=== PATIENT | male | born 1980 | race Caucasian/White ===

== ENCOUNTER 2025-04-07 20:20 | Emergency (ER) | payer BC, SELFPAY ==
[2025-04-07 20:54] VITALS: BP 158/107; PULSE 83; RESP 20; TEMP 36.7; O2SAT 98; BMI 29.3
--- NOTE | 2025-04-07 20:55 | ED.GENADULT ---
HPI - General Adult General Chief complaint: Nausea/Vomiting/Diarrhea Stated complaint: UC sent over for IV for heatstroke Time Seen by Provider: 04/08/25 00:38 Source: patient Mode of arrival: ambulatory Limitations: no limitations History of Present Illness ED Provider: Dr. Jordyn Saeed HPI narrative: Patient comes to the emergency room complaining of nausea vomiting diarrhea and feeling unwell for Couple of days. Patient states that earlier today he went to urgent Care, he was asked to come to the emergency room to get IV fluids. Patient states that over last few hours, he has gradually been feeling a bit better. Patient states that earlier today he had a lot of abdominal cramping, vomited 5 times and had 1 episode of diarrhea. Patient states that since he got to the emergency room, he has not had any vomiting or diarrhea. Patient states that over the weekend he was in a wedding, possibly ate something that might not have agreed with him or a combination of heat exhaustion from today and a bit of alcohol Related Data Allergies Allergy/AdvReac Type Severity Reaction Status Date / Time No Known Allergies Allergy Verified 04/07/25 20:58 Review of Systems Review of Systems: Constitutional : No Weight loss, No Fever, No Chills, No Night Sweats, No Fatigue, No Malaise ENT/Mouth : No Hearing loss, No Ear Pain, No Nasal Congestion, No Sinus Pain, No Hoarseness, No sore throat, No Rhinorrhea, No Swallowing Difficulty Eyes: No Eye Pain, No Swelling, No Redness, No Foreign Body, No Discharge, No Vision Changes Cardiovascular : No Chest Pain, No SOB, No Dyspnea on Exertion, No Orthopnea, No Edema, No Palpitations Respiratory : No Cough, No Sputum, No Wheezing, No Smoke Exposure, No Dyspnea Gastrointestinal : complaining of nausea, vomiting, diarrhea, abdominal discomfort without any significant abdominal pain Genitourinary : no irregular bleeding, No Dysuria, No Urinary Frequency, No Hematuria, No Urinary Incontinence, No Urgency, No Flank Pain, No Urinary Flow Changes, No Hesitancy Musculoskeletal : No joint pain, No Myalgias, No Joint Swelling Skin : No Skin Lesions, No rash Neuro : No Weakness, No Numbness, No Paresthesias, No Loss of Consciousness, No Dizziness, No Headache Psych : No Anxiety/Panic, No Depression, No SI/HI/AH/VH, No Social Issues, Heme/Lymph: No Bruising, No Bleeding,No Lymphadenopathy Endocrine : No Polyuria, No Polydipsia, No Temperature Intolerance [facility] Social History Social History (System 09/15/23 @ 14:30 by Lizzette Cazares) Advance Directives: No Advance Directives Information Provided: No Physical Exam ED Vital Signs: Vital Signs - 24 hr 04/07/25 20:54 04/08/25 02:32 04/08/25 02:34 Temperature 98.1 F Pulse Rate 83 70 71 Respiratory Rate 20 Blood Pressure 158/107 H 143/94 H 144/103 H Pulse Oximetry 98 Oxygen Delivery Method Room Air 04/08/25 02:36 Temperature Pulse Rate 73 Respiratory Rate Blood Pressure 149/109 H Pulse Oximetry Oxygen Delivery Method BMI result Body Mass Index 29.3 Const Other: Appearance: Alert. Oriented X3. No acute distress. Eyes: Pupils equal, round and reactive to light. ENT: Pharynx normal. slightly dry oral mucosa Neck: Normal inspection. Neck supple. No lymph nodes noted. No crepitus CVS: Normal heart rate and rhythm. Pulses normal. Normal S1 and S2 Respiratory: No respiratory distress. Breath sounds normal. No Wheezing. No rales Abdomen: Soft and nontender. No rigidity. No distention. no rebound, no guarding Skin: Skin warm and dry. Normal skin color. Normal skin turgor. Extremities: No lower extremity edema. No Lacerations. No Rash Neuro: Oriented X 3. No motor deficit. No sensory deficit. Moving all extremities. No slurred speech. CN 2 through 12 grossly intact Psych: calm, cooperative, normal affect Course Course Course Narrative: This is an RME: Additional HPI, ROS, PE not included below will be deferred to primary provider. RME assessment and note performed by: Rachelle Hua PA-C This is a 44-year-old male, with a hx of HTN, anxiety, and GERD, who presents to the ER with complaints of nausea, vomiting, diarrhea. Reports that this afternoon he had 4-5 episodes of vomiting. Went to urgent care and was sent here for IV fluids. Did have a wedding over the weekend, was outdoors and drank alcohol. Plan: Labs, EKG, Medications Administered Discontinued Medications Generic Name Dose Route Start Last Admin Trade Name Freq PRN Reason Stop Dose Admin Sodium Chloride 1,000 mls @ 999 mls/hr 04/08/25 00:47 04/08/25 02:31 Ns IVCONT 04/08/25 01:47 Infused .Q1H1M ONE Infusion Ondansetron HCl 4 mg 04/08/25 00:47 04/08/25 02:31 Ondansetron Hcl 4 Mg/2 Ml Vial IVPUSH 04/08/25 00:48 Not Given ONCE ONE Medical Decision Making Medical Decision Making [facility] Narrative: my interpretation of labs: Patient's hematology shows a white blood cell count of 12.1, likely reactive leukocytosis, chemistry within normal limits, normal magnesium, normal LFTs, normal/negative troponin. my interpretation of EKG: Normal sinus rhythm, heart rate 84, no ST segment depression or elevation, nonspecific T-wave inversion in lead 3, QTC 423 overall, patient states that he is feeling a bit better. Is still has dry oral mucosa. Patient receiving IV fluids, Zofran, and orthostatic vitals being checked as he states that he feels a bit weird when he is standing for a prolonged period of time. patient overall feeling better, orthostatic vitals negative. Patient likely had heat exhaustion Differential Diagnosis Differential Diagnoses: The differential diagnosis associated with the presentation includes ( as above) Admission/Observation Consideration of admission/observation: Escalation of care including admission/observation considered ( given patient's symptoms and presentation, observation was considered.) Lab Data [facility] Lab Attestation statement: I reviewed the patient's lab results. 04/07/25 21:17 04/07/25 21:17 Labs: Lab Results 04/07/25 Range/Units 21:17 WBC 12.1 H (4.8-10.8) X10*3/uL RBC 4.98 (4.60-5.80) X10*6/uL Hgb 15.3 (14.0-18.0) g/dl Hct 42.5 (42.0-52.0) % MCV 85.3 (80.0-98.0) fL MCH 30.7 (27.0-33.0) pg MCHC 36.0 (31.0-36.0) g/dl RDW 12.6 (11.0-16.0) % Plt Count 290 (160-400) X10*3/uL MPV 9.3 L (9.4-12.4) fL Immature Gran % (Auto) 0.7 H (0.0-0.4) % Neut % (Auto) 84.1 H (45-73) % Lymph % (Auto) 10.2 L (20-40) % Anderson % (Auto) 4.5 (2-11) % Eos % (Auto) 0.0 (0-4) % Baso % (Auto) 0.5 (0-2) % Lymph # (Auto) 1.2 (1.2-4.9) X10*3/uL Anderson # (Auto) 0.5 (0.1-1.2) X10*3/uL Eos # (Auto) 0.0 (0.0-0.4) X10*3/uL Baso # (Auto) 0.1 (0.0-0.2) X10*3/uL Abs Immat Gran (auto) 0.08 H (0.00-0.03) X10*3/uL Absolute Neuts (auto) 10.2 H (2.0-8.3) x10*3/uL Absolute Nucleated RBC 0.000 (0.0-0.012) X10*3/uL Nucleated RBC % (auto) 0.0 (0.0-0.2) /100WBC Sodium 138 (135-145) mmol/L Potassium 3.7 (3.3-5.1) mmol/L Chloride 104 (96-108) mmol/L Carbon Dioxide 23 (22-29) mmol/L Anion Gap 15 (12-20) BUN 10 (9-16) mg/dL Creatinine 0.87 (0.5-1.4) mg/dL Estim Creat Clear Calc 100.4 Estimated GFR > 60 Random Glucose 114 (60-115) mg/dL Calcium 9.3 (8.4-10.2) mg/dL Magnesium 1.6 (1.6-2.6) mg/dL Total Bilirubin 0.6 (0.0-1.0) mg/dL Direct Bilirubin 0.2 (0.0-0.5) mg/dL AST 24 (5-37) U/L ALT 24 (0-40) U/L Alkaline Phosphatase 63 (39-117) U/L Troponin I High Sens < 2.7 (<3.5-35.0) ng/L Total Protein 7.2 (6.5-8.0) g/dL Albumin 4.6 (3.5-5.0) g/dL Lipase 20 (8-78) U/L Critical Care Time Critical Care Time Critical Care Time: Yes Total Critical Care Time: 35 Attestation: I have personally provided critical care time. Time includes review of lab data, radiology results, discussion with consultants, and monitoring for potential decompensation. Intervention performed as documented. Discharge Plan Discharge Clinical Impression: Nausea vomiting and diarrhea, Dehydration Patient Disposition: Home, Self-Care Instructions: Dehydration (ED), Acute Nausea and Vomiting (ED), Acute Diarrhea (ED) Stand Alone Forms: Work/School Release Print Language: Nauruan
--- NOTE | 2025-04-07 20:56 | ECG_ITS ---
Test Reason : n/v/d Blood Pressure : */* mmHG Vent. Rate : 84 BPM Atrial Rate : 84 BPM P-R Int : 194 ms QRS Dur : 96 ms QT Int : 358 ms P-R-T Axes : 52 37 26 degrees QTcB Int : 423 ms Normal sinus rhythm Normal ECG No previous ECGs available Referred By: Rachelle Hua Electronically Signed By: MARTHA LINCOLN
[2025-04-07 21:21] LABS: MANUAL DIFF FLAG NO
[2025-04-07 21:22] LABS: Basophils Absolute Auto 0.1 X10*3/uL (0.0-0.2); Basophils Percent Auto 0.5 % (0-2); Hematocrit 42.5 % (42.0-52.0); Hemoglobin 15.3 g/dl (14.0-18.0); Imm Gran Abs Auto 0.08 X10*3/uL (0.00-0.03); Imm Gran Pct Auto 0.7 % (0.0-0.4); Lymphocytes Absolute Auto 1.2 X10*3/uL (1.2-4.9); Lymphocytes Percent Auto 10.2 % (20-40); Mean Corpuscular Hemoglobin 30.7 pg (27.0-33.0); Mean Corpuscular Volume 85.3 fL (80.0-98.0); Mean Platelet Volume 9.3 fL (9.4-12.4); Monocytes Absolute Auto 0.5 X10*3/uL (0.1-1.2); Monocytes Percent Auto 4.5 % (2-11); Neutrophils Absolute Auto 10.2 x10*3/uL (2.0-8.3); Neutrophils Percent Auto 84.1 % (45-73); Platelet Count 290 X10*3/uL (160-400); Red Blood Count 4.98 X10*6/uL (4.60-5.80); Red Cell Distribution Width 12.6 % (11.0-16.0); White Blood Count 12.1 X10*3/uL (4.8-10.8)
[2025-04-07 21:39] LABS: Alanine Aminotransferase 24 U/L (0-40); Albumin Level 4.6 g/dL (3.5-5.0); Alkaline Phosphatase 63 U/L (39-117); Anion Gap 15 (12-20); Aspartate Amino Transferase 24 U/L (5-37); Bilirubin Direct 0.2 mg/dL (0.0-0.5); Bilirubin Total 0.6 mg/dL (0.0-1.0); Blood Urea Nitrogen 10 mg/dL (9-16); Calcium 9.3 mg/dL (8.4-10.2); Carbon Dioxide 23 mmol/L (22-29); Chloride 104 mmol/L (96-108); Creatinine Clr Calc Pharmacy 100.4; Estimated Glomerular Filt Rate > 60; Glucose Random 114 mg/dL (60-115); Lipase 20 U/L (8-78); Magnesium 1.6 mg/dL (1.6-2.6); Potassium 3.7 mmol/L (3.3-5.1); Sodium 138 mmol/L (135-145); Total Protein 7.2 g/dL (6.5-8.0)
[2025-04-07 21:49] LABS: Troponin-I High Sensitivity < 2.7 ng/L (<3.5-35.0)
[2025-04-08] MEDS: 0.9 % Sodium Chloride 1,000 ML 999 ML IVCONT (00:58)
[2025-04-08 02:32] VITALS: BP 143/94; PULSE 70
--- NOTE | 2025-04-08 02:32 | PC.NURSE ---
pt refused iv zofran denies nausea reports does not need nausea meds
[2025-04-08 02:34] VITALS: BP 144/103; PULSE 71
[2025-04-08 02:36] VITALS: BP 149/109; PULSE 73
[2025-04-08 03:36] VITALS: BP 149/109; PULSE 73; RESP 18; TEMP 36.7; O2SAT 97
== END 2025-04-08 03:38 | disposition home or self-care (01) ==
PROVIDERS: Physician Assistant Medical; Emergency Provider Emergency Medicine; PCP Internal Medicine
DX: R11.2 Nausea with vomiting, unspecified (principal); E86.0 Dehydration; R25.2 Cramp and spasm; I10 Essential (primary) hypertension; R19.7 Diarrhea, unspecified; Z79.899 Other long term (current) drug therapy
CPT/HCPCS: 36415; 80048; 80076; 83690; 83735; 84484; 85025; 93005; 96360; 99283; 99284

== ENCOUNTER → 2025-04-07 20:56 | Outpatient (BNV) | payer BC, SELFPAY | PROVIDERS: Emergency Provider Emergency Medicine; PCP Internal Medicine; Visit Provider Internal Medicine | DX: R11.2 Nausea with vomiting, unspecified (principal); R19.7 Diarrhea, unspecified | CPT/HCPCS: 93010 ==